=== PATIENT | female | born 1950 | race Caucasian/White ===

== ENCOUNTER 2018-01-17 05:40 | Day surgery (SDC) | payer MEDICARE ==
[2018-01-11 10:39] VITALS: BMI 45.7
--- NOTE | 2018-01-16 23:51 | HP ---
HISTORY OF PRESENT ILLNESS: Ms. Abdi is a pleasant 67-year-old woman presenting today for roughly 2 years of back and left lower extremity pain, which in the last 2 months have progressed significantly to include severe symptoms of neurogenic claudication. She has an MRI of disk from [facility] [place] that reveals profound stenosis at L4-L5 that matches well with her symptoms. She was treated with physical therapy, but does not like the sound of injection and hopes to move forward potentially with surgery. PAST MEDICAL HISTORY: Significant for osteoarthritis, asthma, seasonal allergies, chronic pain syndrome. PAST SURGICAL HISTORY: Bilateral knee replacement, hysterectomy. CURRENT MEDICATIONS: 1. Tramadol. 2. Methocarbamol. 3. Aleve. 4. Singulair. 5. Zyrtec. 6. Advair. ALLERGIES: TO PENICILLIN. PHYSICAL EXAMINATION: The patient is alert and oriented x3. Gait is mildly antalgic. Lower extremity motor exam is normal. ASSESSMENT: Lumbar spinal stenosis with neurogenic claudication. PLAN: Dr. Acosta met with the patient, reviewed imaging, and advocated for an L4-L5 decompression. He explained to the patient the risks, benefits, and alternatives to the procedure. The patient expressed understanding and elected to move forward with surgery as discussed. I do believe that the patient is mentally competent and capable of making medical decisions for herself and we will move forward with surgery as planned. Job ID: [id number]
[2018-01-17] MEDS ORDERED: Thrombin 5000 UNITS/5 ML VIAL ONE (06:21)
[2018-01-17] MEDS ORDERED: Bupivacaine HCl 0.5%/Epinephrine 1:200,000/PF 30 ml Vial ONE (06:21)
[2018-01-17] MEDS ORDERED: Levofloxacin 500 mg/D5W 100 ml Premix Bag ONE (06:33)
[2018-01-17] MEDS ORDERED: Clindamycin/D5W 900 mg/50 ml Premix Bag ONE (06:34)
[2018-01-17] MEDS ORDERED: Midazolam HCl 2 mg/2 ml Vial ONE (06:56)
[2018-01-17] MEDS ORDERED: Fentanyl 100 MCG/2 ML VIAL ONE ×2 (07:22→08:47)
[2018-01-17] MEDS ORDERED: Morphine 2 MG/ML SYRINGE ONE (10:03)
--- NOTE | 2018-01-17 12:37 | OP ---
DATE OF PROCEDURE: 01/17/2018 SALES PERSON: Braden Rivers PA-C INDICATION: Pain. DIAGNOSIS: Lumbar stenosis. PROCEDURE PERFORMED: L4-L5 lumbar decompression. ANESTHESIA: General. DESCRIPTION OF PROCEDURE: The patient was brought into the operating room and placed under general anesthesia. She was flipped from the supine to prone position on the operating room table. A linear incision was planned over the L4-L5 segment. After prepping and draping and after preoperative pause, the incision was created. The soft tissues were swept away from midline. A self-retaining retractor was placed in the wound for optimal exposure. After confirming appropriate level with C-arm fluoroscopy, an Adson rongeur as well as a high-speed cutting drill bit, as well as 2, 3, and 4 mm Kerrisons were used to perform a decompression at the L4-L5 segment. After decompressing the central canal, lateral recess, the wound was irrigated. Hemostasis was maintained throughout. The wound was then closed in anatomic layers and a pressure dressing was applied. There were no known procedural complications. Job ID: [id number]
[2018-01-17] MEDS ORDERED: Acetaminophen/Codeine 30-300mg Tablet ONE (12:38)
== END 2018-01-17 12:45 | disposition home or self-care (01) ==
LOC: SDC 05:40
PROVIDERS: ATTEND Neurological Surgery
PROC: 01NB0ZZ Release Lumbar Nerve, Open Approach (ICD-10-PCS; principal; 2018-01-17)
DX: M48.062 Spinal stenosis, lumbar region with neurogenic claudication (principal); M19.90 Unspecified osteoarthritis, unspecified site; J45.909 Unspecified asthma, uncomplicated; G89.4 Chronic pain syndrome; Z79.1 Long term (current) use of non-steroidal anti-inflammatories (NSAID); Z79.51 Long term (current) use of inhaled steroids; Z79.891 Long term (current) use of opiate analgesic; Z79.899 Other long term (current) drug therapy; Z96.653 Presence of artificial knee joint, bilateral; Z88.0 Allergy status to penicillin
CPT/HCPCS: 76001; 96374; J0670; J1956; J2250; J2270; J3010; J3490

== ENCOUNTER 2018-10-19 06:55 | Day surgery (SDC) | payer MEDICARE ==
[2018-10-18 12:55] VITALS: BMI 45.1
[2018-10-19] MEDS ORDERED: Levofloxacin 500 mg/D5W 100 ml Premix Bag ONE (11:51)
[2018-10-19] MEDS ORDERED: metroNIDAZOLE 500 MG/100 ML BAG ONE (11:51)
--- NOTE | 2018-10-19 12:54 | CT ---
CT ABDOMEN NONCONTRAST CT PELVIS NONCONTRAST: (Urolithiasis protocol) DATE: 10/19/2018 HISTORY: 68-year-old female with abdominal pain following colonoscopy. Rule out bowel perforation. COMPARISON: None TECHNIQUE: IV injection of iodinated contrast media: None Oral contrast media: None FINDINGS: Other than for urolithiasis, the lack of IV and oral contrast limits the evaluation. Exophytically protruding laterally from the mid pole of the left kidney, there is an approximately 4. 5 x 3.5 x 4.5 cm mass with heterogeneous attenuation, suspicious for renal cell carcinoma. This should not be confused with a very small 0.9 x 0.9 x 0.7 cm focal fatty lesion at the medial asp ect of the left renal lower pole parenchyma representing an angiomyolipoma. There are no renal, ureteral, or bladder calculi. No hydronephrosis. There are 2 metallic clips in the cecum. There are 2 metallic clips in the lower sigmoid colon. There is no pneumoperitoneum. There is no ascites or organized fluid collection. Large number of diverticula throughout the descending and sigmoid colon without convincing evidence o f diverticulitis. Normal appendix. Within the limitations of a noncontrast scan, no gross abnormality identified involv ing right kidney, abdominal aorta, spleen, liver, pancreas, or adrenals. No consolidation or pleural effusion at lung bases. At least one noncalcified gallstone present. No signs of acute cholec ystitis. IMPRESSION: 1) 4.5 cm left renal mass suspicious for renal cell carcinoma. Recommend further evaluation with CT a bdomen multiphase with and without contrast, renal mass protocol. 2) that is not to be confused with a tiny subcentimeter angiomyolipoma in the left kidney. 3) metallic clips in the sigmoid colon and cecum. 4) no evidence of perforated viscus. 5) extensive colonic diverticulosis without convincing evidence of diverticulitis. 6) no urolithiasis or obstructive uropathy.
[2018-10-19] MEDS ORDERED: Ondansetron PF 4 MG/2 ML Vial ONE (13:08)
--- NOTE | 2018-10-19 18:09 | OP ---
DATE OF PROCEDURE: 10/19/2018 PREOPERATIVE DIAGNOSIS: Positive Cologuard test, blood in the stool. DESCRIPTION OF PROCEDURE: Informed consent was obtained from the patient. She was sedated with total intravenous anesthesia. The rectal exam was performed and was normal. The colonoscope was advanced to the cecum and the ileocecal valve and appendiceal orifice were clearly identified. The preparation quality was good. A 3.5 cm carpet polyp was identified in the proximal ascending colon across from the ileocecal valve. This extended down a distal fold and into the valley between two folds and partially back up the other side of another. The surface under villous appearance, but appears benign. Submucosal injection of saline was performed with about 20 mL of saline, and the polyp raised very nicely, which exposed the front edge of the polyp and no longer resulted in a dimple or valley within the polyp. Due to the size of the polyp, the polyp was removed in piecemeal fashion. The polyp was removed in multiple pieces. There was one small island of polyp tissue in the center of the polyp, which could not be grasped with a snare and this was cauterized well with argon plasma coagulation. The edges of the polyp were cauterized with argon plasma coagulation as well. There was some pulsatile bleeding at the more distal edge of the polyp and this was controlled with injection of 4 mL of epinephrine and placement of two hemoclips. There was a significant protrusion of fat from the polyp base, which was concerning for perforation. Another hemoclip was placed at the other end to try to approximate this somewhat; however, the defect was not amenable to closure with clipping. A 7 mm polyp was removed by snare cautery polypectomy from the hepatic flexure. There was a large 1.7 cm polyp in the sigmoid colon, which was pedunculated. The polyp was removed by snare cautery polypectomy. Immediate bleeding was controlled with injection of 2 mL of epinephrine and placement of three hemoclips over the polypectomy base. The polyp was completely removed with a good margin on the stalk. There was severe diverticulosis of the sigmoid, descending, and transverse colon. Retroflexed views in the rectum revealed moderate internal hemorrhoids. IMPRESSION: 1. Large flat carpet polyp in the ascending colon. This was raised with saline and removed piecemeal. Edges of the polypectomy base were cauterized with argon plasma coagulation. One small island of adenomatous appearing tissue was cauterized with argon plasma in the central part of the polyp. Immediate bleeding on the distal edge of the polyp was controlled with epinephrine and hemoclip placement. There is a yellow adipose tissue protruding into the defect concerning for perforation. 2. A 7 mm polyp removed from the hepatic flexure by snare cautery polypectomy. 3. A 1.7 cm pedunculated polyp removed from the sigmoid colon at 23 cm from the anal verge. Immediate bleeding was controlled with injection of epinephrine and hemoclip placement. 4. Severe diverticulosis of the left colon and transverse colon. 5. Moderate internal hemorrhoids. RECOMMENDATIONS: 1. She will undergo noncontrast CT immediately and is given empiric antibiotics. If perforation is confirmed and surgical treatment will be required. 2. Await histopathology. 3. Surveillance interval will be determined by Pathology results and clinical status following the polypectomy. Job ID: [id number]
== END 2018-10-19 14:25 | disposition home or self-care (01) ==
LOC: SDC 06:55
PROVIDERS: ATTEND Internal Medicine Gastroenterology
PROC: 0DBN8ZZ Excision of Sigmoid Colon, Via Natural or Artificial Opening Endoscopic (ICD-10-PCS; principal; 2018-10-19)
PROC: 0DBM8ZZ Excision of Descending Colon, Via Natural or Artificial Opening Endoscopic (ICD-10-PCS; 2018-10-19)
PROC: 0DBK8ZZ Excision of Ascending Colon, Via Natural or Artificial Opening Endoscopic (ICD-10-PCS; 2018-10-19)
DX: D12.2 Benign neoplasm of ascending colon (principal); D12.3 Benign neoplasm of transverse colon; D12.5 Benign neoplasm of sigmoid colon; K57.30 Diverticulosis of large intestine without perforation or abscess without bleeding; K64.8 Other hemorrhoids; M19.90 Unspecified osteoarthritis, unspecified site; J45.909 Unspecified asthma, uncomplicated; Z79.899 Other long term (current) drug therapy; Z87.891 Personal history of nicotine dependence; Z88.0 Allergy status to penicillin
CPT/HCPCS: 74176; 88305; J1956; J2405

== ENCOUNTER 2018-11-13 09:07 | Outpatient (CLI) | payer MEDICARE ==
[2018-11-13 09:51] LABS: Estimated GFR-MDRD - POC Greater than 90
[2018-11-13] MEDS ORDERED: Iopamidol 370 76% 100 ML VIAL ONE (10:02)
--- NOTE | 2018-11-13 11:52 | CT ---
CT ABDOMEN WITH IV CONTRAST: HISTORY: kidneys. Renal mass. FINDINGS: The lung bases are unremarkable. The liver, spleen, pancreas and adrenal glands are normal. No calcif ied gallstones are seen. The right kidney is normal. There is an enhancing mass in the left mid kidney, measuring 4.5 x 4 x 4 .5 cm, highly suspicious for malignancy. A 9 mm low density lesion containing fat is also seen in the left kidney, likely angiomyolipoma. No tumor thrombus is seen in the renal veins. No free air, free fluid or lymphadenopathy is noted in the abdomen. There are vascular calcifications without evidence of aneurysmal dilatation of the abdominal aorta. There is colonic diverticulosis. T here are degenerative changes in the spine. A small hiatal hernia is present. IMPRESSION: 1. Findings highly suspicious for a 4.5 x 4 x 4.5 cm left renal malignancy. 2. Small hiatal hernia. 3. Colonic diverticulosis. POS: OFF
--- NOTE | 2018-11-13 13:45 | NM ---
Radionucleotide bone scan HISTORY: Renal mass. FINDINGS: Heterogeneous uptake at the shoulders, thoracic spine, knees, and feet and ankles consisten t with degenerative type changes. Horizontal uptake at the L4 vertebral level may be related to prominent degenerative changes or minimal compression not conspicuous on recent CT exam. Bilateral pa rs interarticularis defects and minimal spondylolisthesis were evident at the L4-[address] No abnormalities of the ribs or long bones. IMPRESSION: Degenerative changes and other chronic-type findings. No scintigraphic evidence of skelet al metastasis.
--- NOTE | 2018-11-13 13:56 | RAD ---
PA AND LATERAL VIEWS CHEST: Date: 11/13/18 HISTORY: Renal mass. FINDINGS: The heart size is normal. The lungs are expanded without lobar consolidation, pneumothoraces, mass, o r pleural effusion. There are degenerative changes in the spine. IMPRESSION: No evidence of acute cardiopulmonary process. POS: OFF
== END 2018-11-13 09:08 | disposition home or self-care (01) ==
LOC: CT 09:07
PROVIDERS: ATTEND Urology
DX: N28.89 Other specified disorders of kidney and ureter (principal); K44.9 Diaphragmatic hernia without obstruction or gangrene; K57.30 Diverticulosis of large intestine without perforation or abscess without bleeding; M19.90 Unspecified osteoarthritis, unspecified site
CPT/HCPCS: 71046; 74160; 78306; 82565; A9503; Q9967

== ENCOUNTER 2018-12-12 07:55 | Outpatient (CLI) | payer MEDICARE ==
[2018-12-12 15:17] LABS: Bacteria/HPF 1+ HPF (None Seen); Bilirubin Negative (Negative); Blood, Urine Negative (Negative); Clarity Clear (Clear); Glucose, Urine (Dipstick) Normal (Negative); Leukocyte Negative Leu/uL (Negative); Nitrite Negative (Negative); Protein, Urine (Dipstick) Negative (Neg-Trace); RBC/HPF 0-3 HPF (0-3); Squamous Epithelial 0-3 HPF (0-3); Urobilinogen Normal mg/dL (Less than 2); WBC/HPF 0-3 HPF (0-3)
== END 2018-12-12 07:56 | disposition home or self-care (01) ==
LOC: LABBT 07:55
PROVIDERS: ATTEND Urology
DX: Z01.812 Encounter for preprocedural laboratory examination (principal); N28.89 Other specified disorders of kidney and ureter
CPT/HCPCS: 81001; 87086

== ENCOUNTER 2018-12-12 14:00 | Inpatient (IN) | payer MEDICARE ==
[2018-12-12 14:18] VITALS: BMI 46.0
[2018-12-14 11:24] LABS: Mean Corpuscular HGB CONC 34.3 g/dL (32.0-36.0); Mean Corpuscular Hemoglobin 32.6 pg (27.0-31.0); Platelet Count 222 thou/uL (130-400); RBC Distribution Width 11.8 % (11.5-14.5); Red Blood Cell (RBC) Count 4.29 mill/uL (4.20-5.40); White Blood Cell (WBC) Count 5.9 thou/uL (4.8-10.8)
[2018-12-14 11:29] LABS: PTT 28.3 SEC (22.9-36.1); Prothrombin Time 12.9 SEC (12.0-14.7)
[2018-12-14 11:51] LABS: ALT (SGPT) 10 U/L (8-55); AST (SGOT) 15 U/L (5-34); Albumin 4.2 g/dL (3.4-4.8); Alkaline Phosphatase 96 U/L (40-110); Anion Gap 14 mmol/L (10-20); BUN (Urea Nitrogen) 15 mg/dL (9.8-20.1); Bilirubin, Total 0.9 mg/dL (0.2-1.2); Calc. Creatinine Clearance 0 mL/min (70-130); Calcium 9.4 mg/dL (7.8-10.44); Carbon Dioxide 23 mmol/L (23-31); Chloride 109 mmol/L (98-107); Estimated GFR-MDRD 84; Globulin 2.5 g/dL (2.4-3.5); Glucose 94 mg/dL (80-115); Potassium 4.4 mmol/L (3.5-5.1); Protein, Total 6.7 g/dL (6.0-8.3); Sodium 142 mmol/L (136-145)
[2018-12-21] MEDS ORDERED: Fentanyl 100 MCG/2 ML VIAL ONE (10:40)
[2018-12-21] MEDS ORDERED: Midazolam HCl 2 mg/2 ml Vial ONE (10:40)
[2018-12-21] MEDS ORDERED: Lidocaine 1.5% w/Epi 1:200K 30 ML VIAL (Epid Use) ONE ×2 (10:41→11:35)
[2018-12-21] MEDS ORDERED: Levofloxacin 500 mg/D5W 100 ml Premix Bag ONE (10:43)
[2018-12-21] MEDS ORDERED: Fentanyl 250 MCG/5 ML VIAL ONE (11:25)
[2018-12-21] MEDS ORDERED: Ropivacaine 0.2% HCl/PF 20 ML ONE (11:26)
[2018-12-21] MEDS ORDERED: Dexamethasone 20 MG/5 ML VIAL ONE (11:35)
[2018-12-21] MEDS ORDERED: Glycopyrrolate 0.2 MG/ML 5 ML SYRINGE ONE (11:35)
[2018-12-21] MEDS ORDERED: ePHEDrine/0.9% NaCl/PF SYRINGE 50 mg/10 ml ONE (11:35)
[2018-12-21] MEDS ORDERED: PROPOFOL 200 MG/20 ML VIAL ONE (11:35)
[2018-12-21] MEDS ORDERED: Rocuronium Bromide 10 MG/ML (10ML VIAL) ONE (11:35)
[2018-12-21] MEDS ORDERED: Lidocaine 1% PF 5 ML VIAL ONE (11:35)
[2018-12-21] MEDS ORDERED: PHENYLEPHRINE-NS 100 MCG/ML 10 ML SYRINGE ONE (11:35)
[2018-12-21] MEDS ORDERED: Ondansetron PF 4 MG/2 ML Vial ONE (11:35)
[2018-12-21] MEDS ORDERED: Scopolamine 1.5 mg/72 hour Patch ONE (11:54)
[2018-12-21] MEDS ORDERED: Hydrocerin (Eucerin) Cream 120 gm Jar TOP PRN (12:15)
[2018-12-21] MEDS ORDERED: Bupivacaine 0.25% 10 ML VIAL EPIDURAL PRN (12:15)
[2018-12-21] MEDS ORDERED: traMADol HCl 50 MG TAB PO PRN (12:15)
[2018-12-21] MEDS ORDERED: Promethazine HCl 25 MG/ML VIAL IM PRN (12:15)
[2018-12-21] MEDS ORDERED: Promethazine HCl 25 MG SUPP PR PRN (12:15)
[2018-12-21] MEDS ORDERED: diphenhydrAMINE 50 MG/ML VIAL IVP PRN (12:15)
[2018-12-21] MEDS ORDERED: Naloxone HCl 0.4 mg/ml Vial IVP PRN (12:15)
[2018-12-21] MEDS ORDERED: Naloxone HCl 0.4 mg/ml Vial IV PRN (12:15)
[2018-12-21] MEDS ORDERED: Zolpidem Tartrate 5 MG TAB PO PRN (12:15)
[2018-12-21] MEDS ORDERED: diphenhydrAMINE 25 MG CAP PO PRN (12:15)
[2018-12-21] MEDS ORDERED: diphenhydrAMINE 50 MG/ML VIAL IM PRN (12:15)
[2018-12-21] MEDS ORDERED: SUGAMMADEX SODIUM 500 MG/5 ML VIAL ONE (14:18)
[2018-12-21] MEDS ORDERED: Oxybutynin 5 MG TAB PO PRN (15:19)
[2018-12-21] MEDS ORDERED: Bisacodyl 10 MG SUPP PR PRN (15:19)
[2018-12-21] MEDS ORDERED: PROVENTIL INHALER 6.7 G (200 INHALATIONS) INH PRN (15:19)
[2018-12-21] MEDS ORDERED: Mag-Al 1200 mg/1200 mg/30 ML UDCUP PO PRN (15:19)
[2018-12-21] MEDS: Sodium Chloride 0.9% 1,000 ML IV SCH ×2 (16:42→20:45)
--- NOTE | 2018-12-21 16:46 | RAD ---
Exam: Chest one view HISTORY:Left pneumothorax Comparison: None FINDINGS: Lungs: Multifocal patchy consolidation as well as linear densities of the bilateral pulmonary parench yma. Cardiac silhouette:Enlarged Pulmonary vessels: Prominent pulmonary vasculature Pleural Spaces: Clear Pneumothorax: No evidence of pneumothorax Osseous abnormalities: None of acuity. IMPRESSION: Bilateral pulmonary parenchymal densities which may be on the basis of edema, atypical pn eumonia and/or superimposed atelectasis. No postprocedural pneumothorax Evidence of CHF.
[2018-12-21] MEDS: Acetaminophen 1,000 MG in Premix Bag 1 BAG IVPB SCH ×2 (18:18→23:02)
[2018-12-21] MEDS: Docusate 100 MG CAP PO SCH (20:48)
--- NOTE | 2018-12-21 22:13 | OP ---
DATE OF PROCEDURE: 12/21/2018 SERVICES: Urology. PREOPERATIVE DIAGNOSIS: Left renal mass. POSTOPERATIVE DIAGNOSIS: Left renal mass. PROCEDURE PERFORMED: Left radical nephrectomy via an open retroperitoneal flank incision. INDICATION FOR PROCEDURE: Ms. Abdi is a 68-year-old white female, who initially presented to me with a left renal mass. CT did confirm a suspicious renal mass highly concerning for renal cell carcinoma. We had discussed possibility of biopsy and partial nephrectomy versus radical nephrectomy. Patient opted to forego biopsy given the high risk of this being malignant, a decision was made to go to the operating room for an attempted partial nephrectomy and possible radical nephrectomy given the size of the mass. Of note, patient's metastatic workup was negative. All risks and benefits had previously been discussed and she agreed to proceed forward. DESCRIPTION OF PROCEDURE: After identification of armband verification of consent, patient was brought back to the operating room, where she underwent general anesthesia with endotracheal intubation. She had an epidural placed preoperatively and a Hamilton catheter was placed. She was then placed in the right lateral decubitus position in the full flank positioning with all pressure points padded, the bed flexed, and the patient secured to the table. The patient was then prepped and draped in usual sterile fashion. After appropriate time-out, an incision was made along the left subcostal margin just below the 12th rib. Incision was made with a 10 blade. Dissection was then carried down with Bovie electrocautery through the fatty tissue and through the external and internal oblique aponeurosis until the transversalis fascia was identified. This was then with a combination of Bovie electrocautery and blunt dissection until the retroperitoneum could be identified. A space was developed along the psoas muscle posteriorly and the peritoneum identified and reflected anteriorly. The Bookwalter was then setup to use for retraction of the body wall and peritoneum anteriorly. During the dissection of the peritoneum, a peritomy was made with exposure of bowel contents. There was no bowel injury, but just exposure into the peritoneal cavity. This was left intact as is and just retracted off to the side. The entire kidney was dissected free. There was a numerous amount of parasitic vessels in the fat. The posterior plane was dissected free and the superior aspect of the kidney was dissected. A small injury was made into the left adrenal gland which did result in some minor bleeding. Due to inability to address this at the current time, the area was packed for hemostasis. The rest of the kidney was then dissected until the anterior and posterior aspects of the kidney were fully dissected. The kidney was dissected along the capsule to remove the perinephric fat to expose the renal tumor which was identified anteriorly over the kidney. The peritumor fat was sent off separately for routine pathologic evaluation. The inferior aspect of the kidney was mobilized. The gonadal vein was identified and ligated. The ureter was identified separate to this and surrounded with a vessel loop for identification. This was dissected until the entire kidney was free, except the pedicle and the ureter. At this point, we had looked at the renal mass and had all the tissues dissected off the kidney to allow for proper inspection of the kidney. It did demonstrate an extremely large mass approximately a little over 5.5 cm by measurement which demonstrates approximately slight interval growth since the CT scan. We discussed the possibility and feasibility of performing a partial nephrectomy. A Satinsky clamp was ready, but after discussion with my partner and looking at the CT imaging, we felt that it would be an extremely high risk at this point, if we attempt to do a partial nephrectomy that there would be an entry into the renal vein as well as difficulty in closing the kidney and reconstruction. There would also be an extremely high risk of pseudoaneurysm given the large size of the mass and the endophytic component of the mass. Ultimately, we elected not to perform a partial nephrectomy and instead just take the entire kidney out to reduce the risk of postoperative bleeding complications, urine leaks, pseudoaneurysms, and AV fistula formation. As such, a vascular loaded stapler was brought off on the inferior aspect of the kidney and placed across the renal hilum. The entire hilum was stapled in a single 45 mm vascular load. There was some additional tissue next to the ureter, which was stapled in a second stapler load which then resulted in a complete removal of the kidney. The ureter was clipped and then divided, allowing the kidney to be completely removed and sent off for routine pathologic evaluation. At this point, the renal hilum appeared extremely dry. The remainder of the retroperitoneum appeared very dry, except the adrenal bed which continued to demonstrate mild oozing. Using the Bovie, the surface of the adrenal gland was cauterized, which resulted in fairly good hemostasis. Once completely dry, the red hole retroperitoneum was irrigated thoroughly with water and then evacuated out. The adrenal gland was reinspected and exhibited extremely slow bleeding which was almost insignificant. FloSeal was applied over the renal hilum and over the adrenal bed and once completed, Surgicel laid over this to prevent spreading of the FloSeal. The peritoneum was then inspected and we elected to close the peritoneotomy with a running 3-0 Vicryl, which closed the entire peritoneum and then this was reflected back into its natural anatomic location. The kidney was then taken down. The patient was unflexed slightly. The transversalis fascia and inferior oblique were then closed using a running #1 PDS starting at both ends and meeting in the middle. These were tied independently and tied to each other for complete closure. For the top layer to see if we could get some additional reinforcement, the top layer was closed with a #1 PDS in an interrupted [id number] fashion to completely close the outer layer. Zoie was then applied to the subcu tissues after the incision was irrigated and dried and then the skin closed with skin staplers. A dressing was applied. The patient was then taken out of positioning, back to the supine position, awakened, extubated, and taken to PACU for recovery in stable condition. COMPLICATIONS: None. ESTIMATED BLOOD LOSS: 400 mL. Retained tubes, drains, epidural, and 16-Cuban Hamilton catheter. SPECIMENS: Left kidney and proximal ureter. DISPOSITION: Patient will be admitted to the hospital for postoperative recovery. Once she is adequately recovered, she can be discharged and we will follow up for surveillance on an outpatient basis. Job ID: [id number]
[2018-12-21] MEDS: traMADol HCl 50 MG TAB PO PRN (22:55)
[2018-12-22] MEDS: fentaNYL Citrate/PF 500 MCG, Bupivacaine 10 ML in Sodium Chloride 0.9% 80 ML EPIDURAL SCH ×2 (03:09→15:59)
[2018-12-22 05:26] LABS: #Lymphocytes 0.8 thou/uL (1.20-3.40); #Neutrophils 10.7 thou/uL (1.40-6.50); %Basophils 0.1 % (0.0-1.0); %Eosinophils 0.1 % (0.0-10.0); %Lymphocytes 6.2 % (21.0-51.0); %Neutrophils 85.6 % (42.0-75.0); Hemoglobin 12.2 g/dL (12.0-16.0); Mean Corpuscular HGB CONC 34.1 g/dL (32.0-36.0); Mean Corpuscular Hemoglobin 32.6 pg (27.0-31.0); Mean Corpuscular Volume 95.6 fL (78.0-98.0); Mean Platelet Volume 6.7 fL (7.4-10.4); Platelet Count 188 thou/uL (130-400); RBC Distribution Width 11.7 % (11.5-14.5); Red Blood Cell (RBC) Count 3.73 mill/uL (4.20-5.40); White Blood Cell (WBC) Count 12.5 thou/uL (4.8-10.8)
[2018-12-22 05:50] LABS: Anion Gap 11 mmol/L (10-20); BUN (Urea Nitrogen) 16 mg/dL (9.8-20.1); Calc. Creatinine Clearance 98 mL/min (70-130); Carbon Dioxide 24 mmol/L (23-31); Chloride 109 mmol/L (98-107); Estimated GFR-MDRD 54; Glucose 119 mg/dL (80-115); Potassium 4.5 mmol/L (3.5-5.1); Sodium 139 mmol/L (136-145)
[2018-12-22] MEDS: Acetaminophen 1,000 MG in Premix Bag 1 BAG IVPB SCH (06:07)
[2018-12-22] MEDS: Docusate 100 MG CAP PO SCH ×2 (08:02→20:42)
[2018-12-22] MEDS ORDERED: Prevnar 13-Val Conj/PF 0.5 ML SYRINGE IM ONE (09:00)
[2018-12-22] MEDS: traMADol HCl 50 MG TAB PO PRN ×2 (15:18→21:38)
[2018-12-22] MEDS: Ondansetron PF 4 MG/2 ML Vial IVP PRN (18:14)
--- NOTE | 2018-12-22 20:27 | PRG ---
DATE OF SERVICE: 12/22/2018 SUBJECTIVE: The patient states that she is feeling pretty good. She has advanced her diet and has been able to tolerate small amounts of food without feeling nauseated or having any vomiting. She has not passed any gas or had any bowel movements. She is not having any bladder spasms. She did sit up on the side of her bed today, but has not gotten up or walked at all. She is endorsing pain around 4/10, although she feels the epidural is working quite well for her. OBJECTIVE: VITAL SIGNS: Temperature 98.1, pulse 82, respirations 18, blood pressure 126/62, saturation 95% on room air. GENERAL: No apparent distress. Communicative and alert. CARDIOVASCULAR: Regular rate and rhythm. ABDOMEN: Soft, nontender, and nondistended. Positive bowel sounds. Incision is dressed with some mild saturation areas. : Hamilton catheter in good position, secured, with clear yellow urine. EXTREMITIES: No clubbing, cyanosis, or edema. LABORATORY EVALUATION: The full set of labs are in the [employer] system, which I have reviewed. Of note, the patient's white count is 12.5 and hemoglobin is 12.2. Creatinine currently is 1.01. ASSESSMENT AND PLAN: A 68-year-old white female, status post left radical nephrectomy, postoperative day 1, recovering well. She has no evidence of acute kidney injury at this time, but I will continue to trend her creatinine to see how high it goes. At the current time, I do think she can start deep venous thrombosis prophylaxis with heparin. I will hold off on using Lovenox right now until I know what her final GFR will be to ensure that she clears the anticoagulants effectively. She no longer needs to be on bedrest and can walk only with assistance as she still has her epidural. Hamilton catheter will be continued until her epidural is removed. She may continue on a regular diet. She is drinking well. I do not think that any additional fluids are necessary at this time, although we will continue to monitor her urine output. She is likely third spacing somewhat at this time. I will continue to monitor and make changes accordingly. Job ID: [id number]
[2018-12-22] MEDS: Enoxaparin Sodium 40 MG/0.4 ML SYRINGE SC SCH (20:45)
[2018-12-23] MEDS: fentaNYL Citrate/PF 500 MCG, Bupivacaine 10 ML in Sodium Chloride 0.9% 80 ML EPIDURAL SCH ×2 (03:46→16:33)
[2018-12-23] MEDS: hydrALAZINE 20 MG/ML VIAL SLOW IVP PRN (03:47)
[2018-12-23] MEDS: Ondansetron PF 4 MG/2 ML Vial IVP PRN (03:53)
[2018-12-23 07:09] LABS: Hemoglobin 12.3 g/dL (12.0-16.0); Mean Corpuscular Hemoglobin 33.6 pg (27.0-31.0); Mean Corpuscular Volume 96.1 fL (78.0-98.0); Mean Platelet Volume 7.2 fL (7.4-10.4); Platelet Count 176 thou/uL (130-400); RBC Distribution Width 11.8 % (11.5-14.5); Red Blood Cell (RBC) Count 3.65 mill/uL (4.20-5.40); White Blood Cell (WBC) Count 12.5 thou/uL (4.8-10.8)
[2018-12-23 07:32] LABS: Anion Gap 13 mmol/L (10-20); BUN (Urea Nitrogen) 19 mg/dL (9.8-20.1); Calc. Creatinine Clearance 89 mL/min (70-130); Calcium 8.4 mg/dL (7.8-10.44); Carbon Dioxide 23 mmol/L (23-31); Chloride 108 mmol/L (98-107); Estimated GFR-MDRD 49; Glucose 118 mg/dL (80-115); Potassium 5.1 mmol/L (3.5-5.1); Sodium 139 mmol/L (136-145)
[2018-12-23] MEDS: Scopolamine 1.5 mg/72 hour Patch TOP SCH (07:59)
[2018-12-23 08:05] LABS: Lymphocytes 4 % (21-51); MDiff Complete? YES; Monocytes 11 % (0-10); Neutrophil 85 % (42-75); Platelet Morphology Comment Appears Adequate
[2018-12-23] MEDS: Docusate 100 MG CAP PO SCH ×2 (08:09→20:24)
[2018-12-23] MEDS: traMADol HCl 50 MG TAB PO PRN (10:02)
--- NOTE | 2018-12-23 18:44 | PRG ---
DATE OF SERVICE: 12/23/2018 SUBJECTIVE: The patient is doing well overall. She has not passed any flatus or had a bowel movement. She is tolerating a regular diet, although in small amounts. She continues to have an epidural, which was adjusted today, and her pain control has been adequate. Hamilton catheter remains in place at this time. She has ambulated in around her room four times today. No fever or chills. No other complaints. OBJECTIVE: VITAL SIGNS: Temperature is 98.7, pulse 80s to 90s, respirations 16, blood pressure 129/63, oxygen saturation 94% on 1 L nasal cannula. GENERAL: She is awake and alert, in no apparent distress. HEENT: Normocephalic and atraumatic. CARDIOVASCULAR: Regular rate and rhythm. PULMONARY: Breathing unlabored. ABDOMEN: Obese, soft, nontender/nondistended. Left flank incision is clean/dry/intact with small amount of serosanguineous drainage on the dressing. GENITOURINARY: Hamilton catheter draining clear yellow urine. EXTREMITIES: Warm and well perfused. No edema. NEUROLOGIC: No focal deficits. LABORATORY DATA: Hemoglobin 12.3, hematocrit 35.1. Chemistry; sodium 139, potassium 5.1, chloride 108, bicarb 23, BUN 19, and creatinine 1.1. ASSESSMENT: A 68-year-old female, postoperative day #2, status post left open radical nephrectomy. PLAN: Overall, the patient is doing well. Continue ambulation. Wean epidural and transition to p.o. pain medication once appropriate. Hamilton catheter will remain in place until epidural is removed. Continue to follow renal function. H and H are stable. Job ID: [id number]
[2018-12-23] MEDS: Enoxaparin Sodium 40 MG/0.4 ML SYRINGE SC SCH (20:24)
[2018-12-24] MEDS: hydrALAZINE 20 MG/ML VIAL SLOW IVP PRN (03:39)
[2018-12-24] MEDS: fentaNYL Citrate/PF 500 MCG, Bupivacaine 10 ML in Sodium Chloride 0.9% 80 ML EPIDURAL SCH (05:11)
[2018-12-24 06:06] LABS: Anion Gap 14 mmol/L (10-20); BUN (Urea Nitrogen) 23 mg/dL (9.8-20.1); Calc. Creatinine Clearance 87 mL/min (70-130); Calcium 8.7 mg/dL (7.8-10.44); Carbon Dioxide 26 mmol/L (23-31); Chloride 104 mmol/L (98-107); Estimated GFR-MDRD 48; Glucose 106 mg/dL (80-115); Hemoglobin 12.5 g/dL (12.0-16.0); Lymphocytes 7 % (21-51); MDiff Complete? YES; Mean Corpuscular HGB CONC 33.1 g/dL (32.0-36.0); Mean Corpuscular Hemoglobin 32.3 pg (27.0-31.0); Mean Corpuscular Volume 97.6 fL (78.0-98.0); Monocytes 3 % (0-10); Neutrophil 90 % (42-75); Platelet Count 172 thou/uL (130-400); Platelet Morphology Comment Appears Adequate; Potassium 4.9 mmol/L (3.5-5.1); RBC Distribution Width 11.7 % (11.5-14.5); RBC Morphology Normal; Red Blood Cell (RBC) Count 3.86 mill/uL (4.20-5.40); Sodium 139 mmol/L (136-145); White Blood Cell (WBC) Count 10.8 thou/uL (4.8-10.8)
[2018-12-24] MEDS ORDERED: HYDROcodone/Acetaminophen 7.5/325 mg Tablet PO PRN ×2 (08:28)
--- NOTE | 2018-12-24 08:55 | PRG ---
DATE OF SERVICE: 12/24/2018 SUBJECTIVE: The patient states she is feeling fine. She does have soreness this morning, but states that her pain has been relatively well controlled with the epidural and pain pills. She has gotten up out of bed and walked. She has sat in a chair. She states that she is having some gas, but has not had a bowel movement. Denies any chest pain or shortness of breath. Her blood pressure has been slightly going up, which she was concerned about. Her losartan is currently on hold. OBJECTIVE: VITAL SIGNS: Temperature 98.4, pulse 88, respirations 16, blood pressure 157/67, saturation 96% on 2 L nasal cannula. GENERAL: No apparent distress. Communicative and alert. CARDIOVASCULAR: Regular rate and rhythm. ABDOMEN: Soft, nontender, nondistended. Positive bowel sounds. Incision was undressed today. Incision is clean, dry, and intact without infection or hernia. : Hamilton catheter in place with clear yellow urine. EXTREMITIES: No clubbing, cyanosis, or edema. LABORATORY EVALUATION: The full set of labs are in the [employer] system, which I have reviewed. Of note, the patient's white count is 10.8 with hemoglobin 12.5. Creatinine of 1.13. ASSESSMENT AND PLAN: A 68-year-old white female with morbid obesity, status post left radical nephrectomy with good recovery thus far. We would recommend continuing to wean off her epidural on to oral pain pills. We can use hydrocodone once she is off her epidural for additional pain control if she needs it and eventually she probably will be able to use tramadol and Tylenol alone. For now, continue ambulation. Hamilton catheter will remain in until epidural was removed. Continue diet. The patient may use a suppository if needed. Continue incentive spirometry. We will start amlodipine for blood pressure control. Job ID: [id number]
[2018-12-24] MEDS: Acetaminophen 500 MG TAB PO PRN ×2 (09:22→18:53)
[2018-12-24] MEDS: Amlodipine 5 MG TAB PO SCH (09:23)
[2018-12-24] MEDS: traMADol HCl 50 MG TAB PO PRN ×2 (09:23→18:53)
[2018-12-24] MEDS: Docusate 100 MG CAP PO SCH ×2 (09:25→20:27)
--- NOTE | 2018-12-24 16:51 | PQF ---
DOYLE GARCIA, BRYN SILVA [id number] SURG A- [id number] CLINICAL DOCUMENTATION IMPROVEMENT CLARIFICATION FORM: ICD-10 Updated PLEASE DO AN ADDENDUM TO THE PROGRESS NOTE WITH ANY DOCUMENTATION UPDATES OR ADDITIONS AND CARRY THROUGH TO DC SUMMARY. THANK YOU. DATE: 12/24/18 ATTN: Dr. De La Cruz Please exercise your independent, professional judgment in responding to the clarification form. Clinical indicators are provided on the bottom of this form for your review Please check appropriate box(s): [ ] Small injury to left adrenal gland is a complication of current/recent surgery [X ] Small injury to left adrenal gland is not a complication of current/recent surgery [ ] Other diagnosis [ ] Unable to determine In addition, please specify: Present on Admission (POA): [ ] Yes [ X] No [ ] Unable to determine CLINICAL INDICATORS - SIGNS / SYMPTOMS / LABS / RESULTS AND LOCATION IN MR Bleeding--> " a small injury was made into the left adrenal gland which did result in some minor bleeding" per 12/21 Op note(Dorothy) RISK FACTORS / RESULTS AND LOCATION IN MR Recent surgery--> 12/21 Op note: " left radical nephrectomy via an open retroperitoneal flank incision" 12/24 (Dorothy): " morbid obesity" TREATMENT / RESULTS AND LOCATION IN MR 12/21 Op note(Dorothy): "FloSeal was applied over the renal helium and over the adrenal bed and once completed, Surgicel laid over this to prevent spreading of the FloSeal" (This form is maintained as a part of the permanent medical record) 2014 [employer]. All Rights Reserved Yesi Ha, RN, BSN, [email or web address] [phone] [facility] CENTEREvangelina
[2018-12-24] MEDS: Enoxaparin Sodium 40 MG/0.4 ML SYRINGE SC SCH (20:28)
[2018-12-25] MEDS: hydrALAZINE 20 MG/ML VIAL SLOW IVP PRN (00:47)
[2018-12-25] MEDS: Ondansetron PF 4 MG/2 ML Vial IVP PRN (00:56)
[2018-12-25] MEDS: fentaNYL Citrate/PF 500 MCG, Bupivacaine 10 ML in Sodium Chloride 0.9% 80 ML EPIDURAL SCH (04:15)
[2018-12-25 05:54] LABS: #Eosinphils 0.1 thou/uL (0.0-0.7); #Lymphocytes 0.8 thou/uL (1.20-3.40); #Monocytes 0.6 thou/uL (0.11-0.59); #Neutrophils 6.1 thou/uL (1.40-6.50); %Basophils 0.1 % (0.0-1.0); %Eosinophils 1.3 % (0.0-10.0); %Lymphocytes 10.8 % (21.0-51.0); %Monocytes 8.3 % (0.0-10.0); %Neutrophils 79.5 % (42.0-75.0); Hemoglobin 11.4 g/dL (12.0-16.0); Mean Corpuscular HGB CONC 32.7 g/dL (32.0-36.0); Mean Corpuscular Hemoglobin 31.8 pg (27.0-31.0); Mean Corpuscular Volume 97.3 fL (78.0-98.0); Platelet Count 212 thou/uL (130-400); RBC Distribution Width 11.9 % (11.5-14.5); Red Blood Cell (RBC) Count 3.58 mill/uL (4.20-5.40); White Blood Cell (WBC) Count 7.7 thou/uL (4.8-10.8)
[2018-12-25 06:13] LABS: Anion Gap 16 mmol/L (10-20); BUN (Urea Nitrogen) 26 mg/dL (9.8-20.1); Calc. Creatinine Clearance 99 mL/min (70-130); Calcium 8.6 mg/dL (7.8-10.44); Carbon Dioxide 19 mmol/L (23-31); Chloride 106 mmol/L (98-107); Estimated GFR-MDRD 55; Glucose 99 mg/dL (80-115); Potassium 4.7 mmol/L (3.5-5.1); Sodium 136 mmol/L (136-145)
[2018-12-25] MEDS: Docusate 100 MG CAP PO SCH ×2 (08:34→20:26)
[2018-12-25] MEDS: Amlodipine 5 MG TAB PO SCH (08:34)
[2018-12-25] MEDS: Acetaminophen 500 MG TAB PO PRN (08:35)
[2018-12-25] MEDS: Enoxaparin Sodium 40 MG/0.4 ML SYRINGE SC SCH (20:27)
[2018-12-25] MEDS: traMADol HCl 50 MG TAB PO PRN (20:33)
--- NOTE | 2018-12-25 21:56 | PRG ---
DATE OF SERVICE: 12/25/2018 SUBJECTIVE: The patient states she is feeling much better. Her epidural has been turned down to 4 mcg per hour. She still has a Hamilton catheter in. She is passing flatus, but has not had a bowel movement. She has been up out of bed and walking. She is using her incentive spirometer. Her pain seems to be relatively well controlled. OBJECTIVE: VITAL SIGNS: Temperature 98.3, pulse 82, respirations 16, blood pressure 154/62, and saturation 93% on room air. GENERAL: No apparent distress. Communicative and alert. CARDIOVASCULAR: Regular rate and rhythm. ABDOMEN: Soft, nontender, and nondistended. Positive bowel sounds. Incision clean, dry, and intact. : Hamilton catheter in place. EXTREMITIES: No clubbing, cyanosis, or edema. LABORATORY EVALUATION: The full set of labs are in the [employer] system, which I have reviewed. Of note, the patient's white count is 7.7, hemoglobin 11.4. Creatinine is currently 1. ASSESSMENT AND PLAN: A 68-year-old white female, status post left open radical nephrectomy, postop day 4, recovering quite well. She has good evidence of renal function. I think her epidural can be removed today as well as her Hamilton catheter. We will make sure that she is able to ambulate and that she voids adequately. If her pain is controlled tomorrow, I think she can be discharged home. Her pathology results still have not come back. Job ID: [id number]
[2018-12-26] MEDS: Scopolamine 1.5 mg/72 hour Patch TOP SCH (08:36)
[2018-12-26] MEDS: Amlodipine 5 MG TAB PO SCH (08:41)
[2018-12-26] MEDS: Docusate 100 MG CAP PO SCH (08:42)
--- NOTE | 2018-12-26 10:37 | PRG ---
DATE OF SERVICE: 12/26/2018 SUBJECTIVE: The patient states she is feeling very good. Her pain has been very well controlled with tramadol alone, although she does get worsening pain at times. Her epidural was removed yesterday. Her catheter was subsequently removed and she voided only 200 mL, but then subsequently 400 mL thereafter. She states that she is feeling very well. She is having her appetite come back. She is eating and she feels like she has to have a bowel movement this morning, but has not had one yet. She has passed gas. She has been up out of bed walking. She is ready to go home. OBJECTIVE: VITAL SIGNS: Temperature 97.7, pulse 72, respirations 24, blood pressure 170/72, saturation 95% on room air. GENERAL: No apparent distress. Communicative, alert. CARDIOVASCULAR: Regular rate and rhythm. ABDOMEN: Soft, nontender, nondistended. Incision is clean, dry, and intact. EXTREMITIES: No clubbing, cyanosis, or edema. LABORATORY EVALUATION: The full set of labs are in the [employer] system, which I have reviewed. Of note, there are no new labs today. ASSESSMENT AND PLAN: A 68-year-old white female with morbid obesity, status post left open radical nephrectomy via retroperitoneal approach postop day #5 with good healing and good recovery. She is ready to go home. I will put in her discharge orders. I am going to increase her amlodipine up to 10 mg due to her blood pressure still being poorly controlled. I have recommended that she see her primary care doctor for followup as an outpatient for further management options regarding her hypertension. I would not recommend that she be on an ARB or JEOVANY inhibitor at this time, given her solitary kidney, unless there are no other options from a hypertension standpoint. I will plan to see her back in approximately 2 to 3 weeks for staple removals. I have gone over all her discharge instructions. Job ID: [id number]
[2018-12-26] MEDS ORDERED: HYDROcodone/Acetaminophen 5/325 mg Tablet PO SCH (12:00)
[2018-12-26 12:06] VITALS: BP 170/52; TEMP 98.7
--- NOTE | 2018-12-26 22:27 | DIS ---
DATE OF ADMISSION: 12/21/2018 DATE OF DISCHARGE: 12/26/2018 ADMITTING DIAGNOSIS: Renal mass. DISCHARGE DIAGNOSIS: Renal mass, most likely renal cell carcinoma. PROCEDURE PERFORMED: Left open radical nephrectomy via retroperitoneal approach. BRIEF HISTORY: Ms. Abdi is a 68-year-old white female, who presented with an approximately 5 cm renal mass. We discussed potential for open partial nephrectomy with possible conversion to a radical nephrectomy with all risks and benefits and she agreed to proceed forward. The full H and P can be found in the scanned portion of the [employer] [facility] system. HOSPITAL COURSE: After surgery (please see operative note for details), the patient was admitted to the hospital for postoperative recovery. She had an epidural in as well as a Hamilton catheter. She was started on a clear liquid diet but was then advanced to a regular diet, which she tolerated throughout her hospital stay. Her labs looked good and her creatinine never significantly increased reaching a peak of 1.13 and then decreasing back down to 1 at the time of her discharge. Her urine output remained clear throughout her hospital stay. Her catheter was removed after her epidural was removed once she was weaned off her epidural and transitioned to oral pain medication. Her pain stayed well controlled on oral pain medication. She was able to get up and walk around well. She was able to take care of her incision. She did not have a bowel movement while in the hospital, but was passing gas and did not have any abdominal distention, nausea, or vomiting. She did feel like she had a bowel movement right upon discharge, which she was able to accomplish. Her hemoglobin remained stable throughout her hospital stay and she was kept on Lovenox for DVT prophylaxis. At the time of discharge, she was ambulating. Her pain was well controlled. Her incision looked good. Her labs looked good. She was voiding on her own and she was ready and stable for discharge. DISPOSITION: Discharge to home. DISCHARGE CONDITION: Good. DISCHARGE MEDICATIONS: Include resuming all of her home medications except her losartan, which will be stopped, instead I have switched over to amlodipine 10 mg p.o. daily. She was initially on 5 mg while in the hospital, but this was not sufficient enough to control the blood pressure, therefore, is being increased to 10 mg. Discharge instructions were discussed with the patient including bathing and activity restrictions as well as driving restrictions. I will see her back on 01/14, for staple removals. Job ID: [id number]
== END 2018-12-26 12:30 | disposition home or self-care (01) | DRG 657 ==
LOC: SURG A 12-21 10:06
PROVIDERS: ADMIT Urology; ATTEND Urology
PROC: 0TT10ZZ Resection of Left Kidney, Open Approach (ICD-10-PCS; principal; 2018-12-21)
DX: C64.2 Malignant neoplasm of left kidney, except renal pelvis (principal); Z68.42 Body mass index [BMI] 45.0-49.9, adult; E66.01 Morbid (severe) obesity due to excess calories
CPT/HCPCS: 36415; 36416; 71045; 80048; 80053; 85025; 85027; 85610; 85730; 86850; 86900; 86901; 88307; C1769; J0131; J0360; J1100; J1650; J1956; J2001; J2250; J2405; J2704; J2795; J3010; J3370; J3490; Q0163

== ENCOUNTER 2019-12-24 08:18 | Outpatient (CLI) | payer MEDICARE ==
--- NOTE | 2019-12-24 09:55 | CT ---
CT abdomen with and without IV contrast: Oral contrast was not administered. INDICATIONS: Follow-up renal cell carcinoma COMPARISON: CT abdomen 11/13/2018 FINDINGS: Lung bases are clear Liver, spleen, and pancreas appear unremarkable. Stomach and duodenum appear unremarkable. Evidence of small sliding diaphragmatic hernia. Adrenal glands appear normal. Patient is post left nephrectomy since prior exam. Right kidney unremarkable. Delayed sequence shows opacification of the right collecting structures. These appear unremarkable. No evidence of adenopathy. Aorta normal caliber. Visualized small and large bowel loops unremarkable with diverticulosis noted in the colon. Subcutaneous tissues, abdominal wall, and muscular structures appear unremarkable. Vertebral bodies maintain height and alignment. Degenerative disc changes are prominent at L4-5. Cent ral canal stenosis at L3-4 and L4-5. IMPRESSION: Post left nephrectomy changes. No acute process. Nonacute findings described above.
--- NOTE | 2019-12-24 12:50 | RAD ---
EXAM: Chest PA and lateral: HISTORY: Neoplasm left kidney COMPARISON: 11/13/2018 FINDINGS: Lung jackson are clear. Vascular markings are normal. Stranding in the right mid lung field is stable. Heart and mediastinum appear unremarkable. Degenerative spine changes appear stable. IMPRESSION: No acute finding.
[2019-12-24] MEDS ORDERED: Iopamidol 370 76% 100 ML VIAL ONE (12:53)
== END 2019-12-24 08:19 | disposition home or self-care (01) ==
LOC: BICCT 08:18
PROVIDERS: ATTEND Urology
DX: C64.2 Malignant neoplasm of left kidney, except renal pelvis (principal); Z90.5 Acquired absence of kidney
CPT/HCPCS: 71046; 74170; 81001; 82565

== ENCOUNTER 2020-12-07 13:46 | Outpatient (CLI) | payer MEDICARE ==
[~2020-12-07 13:46] MED LIST: Iopamidol-370 76% 500 ML 1 ML ONE
== END 2020-12-07 13:47 | disposition home or self-care (01) ==
LOC: BICCT 13:46
PROVIDERS: ATTEND Urology
DX: C64.2 Malignant neoplasm of left kidney, except renal pelvis (principal); M47.816 Spondylosis without myelopathy or radiculopathy, lumbar region; M48.061 Spinal stenosis, lumbar region without neurogenic claudication; Z90.5 Acquired absence of kidney
CPT/HCPCS: 71046; 74160; 82565; Q9967

== ENCOUNTER 2021-12-28 09:55 | Outpatient (CLI) | payer MEDICARE | END 2021-12-28 09:56 | disposition home or self-care (01) | LOC: BICCT 09:55 | PROVIDERS: ATTEND Urology | DX: Z08 Encounter for follow-up examination after completed treatment for malignant neoplasm (principal); K57.30 Diverticulosis of large intestine without perforation or abscess without bleeding; K44.9 Diaphragmatic hernia without obstruction or gangrene; M47.816 Spondylosis without myelopathy or radiculopathy, lumbar region; M48.061 Spinal stenosis, lumbar region without neurogenic claudication; Z90.710 Acquired absence of both cervix and uterus; Z90.5 Acquired absence of kidney; Z85.528 Personal history of other malignant neoplasm of kidney | CPT/HCPCS: 71046; 74177; 82565 ==

== ENCOUNTER 2024-02-21 08:45 | Outpatient (CLI) | payer MEDICARE ==
[2024-02-21] MEDS ORDERED: Iopamidol 370 76% 100 ML VIAL ONE (09:27)
== END 2024-02-21 08:46 | disposition home or self-care (01) ==
LOC: CT 08:45
PROVIDERS: ATTEND Urology
DX: C64.2 Malignant neoplasm of left kidney, except renal pelvis (principal); J98.4 Other disorders of lung; M47.814 Spondylosis without myelopathy or radiculopathy, thoracic region; Z90.5 Acquired absence of kidney
CPT/HCPCS: 36415; 71046; 74160; 82565